=== PATIENT | female | born 1940 | race Two or more races ===

== ENCOUNTER 2025-08-11 20:18 | Inpatient (IN) | payer OTHER ==
[~2025-08-11] VITALS: Ht 157.5 cm; Wt 83.0 kg
--- NOTE | 2025-08-11 20:55 | NUR ---
SE RECIBE PTE ALERTA Y ORIENTADA EN AMBULANCIA REFIRIENDO DOLOR ABDOMINAL. SE MIDEN S/V Y SE UBICA EN HANNA CON BARANDAS ELEVADAS Y NIVEL MAS BAJO DE LA MISMA.
[2025-08-11] MEDS ORDERED: ARBLI10 MG/1 ML PO (20:57)
[2025-08-11] MEDS ORDERED: HYDRODIURIL12.5 MG PO (20:58)
[2025-08-11] MEDS ORDERED: SYMBICORT 16010.2 GM IH (20:58)
[2025-08-11] MEDS ORDERED: SIMVASTATIN5 MG PO (20:58)
[2025-08-11] MEDS ORDERED: AMLODIPINE-OLM1 EAC2 PO (20:58)
[2025-08-11] MEDS ORDERED: FAMOTIDINE/PF 20 MG in 0.9 % SODIUM CHLORIDE 8 ML IV PUSH ONE (22:15)
[2025-08-11] MEDS ORDERED: 0.9 % SODIUM CHLORIDE 1,000 ML IV SCH (22:15)
[2025-08-11] MEDS ORDERED: MORPHINE SULFATE 4 MG/ML CARTRIDGE IV ONE (22:15)
[2025-08-11] MEDS ORDERED: ONDANSETRON HCL 4 MG in 0.9 % SODIUM CHLORIDE 50 ML IV ONE (22:15)
[2025-08-11 23:12] LABS: URINE APPEARANCE Clear; URINE BILIRRUBIN Negative (NEGATIVE); URINE BLOOD Negative; URINE COLOR Yellow; URINE GLUCOSE Negative (NEGATIVE); URINE KETONE Negative (NEGATIVE); URINE LEUKOCYTE Negative; URINE NITRATE Negative; URINE PROTEIN Negative (NEGATIVE); URINE UROBILINOGEN 0.2 E.U./dl
[2025-08-11 23:17] LABS: URINE BACTERIA 20.5 uL (0.0-1933); URINE EPITHELIAL CELLS 1.6 uL (0.0-38.8); URINE WBC 3.3 uL (0.0-23.2)
[2025-08-11] MEDS ORDERED: FAMOTIDINE/PF 20 MG/2 ML VIAL ONE (23:17)
[2025-08-11] MEDS ORDERED: ONDANSETRON HCL 2 MG/ML VIAL ONE (23:17)
[2025-08-11 23:32] LABS: URINE CAST 0.14 uL (0.0-1.40); URINE RBC 0.1 uL (0.0-20.8)
[2025-08-11 23:46] LABS: BASO % 0.6 % (0.1-1.2); EOS # 0.36 (0.04-0.54); EOS % 3.5 % (0.7-7.0); LYMPH # 2.69 (1.18-3.74); LYMPH % 26.2 % (19.3-53.1); MEAN PLATELET VOLUME 10.80 fl (9.4-12.4); MONO # 0.92 (0.24-0.82); MONO % 8.9 % (4.7-12.5); NEUT # 6.23 (1.56-6.13); NEUT % 60.6 % (34.0-71.1); RED CELL DISTRIBUTION WIDTH 13.8 % (11.6-14.4)
--- NOTE | 2025-08-11 23:46 | NUR ---
SE EDUCA SOBRE [place] MEDICO, ESTA REFIERE ENTENDER. SE EXTRAEN MUESTRAS DE LABORATORIO Y SE ADMINISTRAN MEDICAMENTOS YAMILET ORDEN MEDICA. SE HACE ENTREGA DE ENVASE DE U/A.
[2025-08-11 23:48] LABS: ERYTHROCYTE SEDIMENTATION RATE 17 mm/hr (0-30)
[2025-08-12 00:09] LABS: INR 0.98
[2025-08-12 00:13] LABS: ALT/SGPT 18.0 U/L (12-78); AST/SGOT 11.0 U/L (15-37); BILIRUBIN TOTAL 0.44 mg/dL (0.3-1.2); BUN CREA RATIO 26.0 (7.0-25.0); CREATININE SERUM 1.13 mg/dL (0.55-1.02); GFR 45.98; GLOBULINA 3.5 G/DL (2.4-3.5); GLUCOSE FASTING 104.0 mg/dL (65-100); OSMOLALITY SERUM 293.0 MOSM/KG (275-295)
[2025-08-12] MEDS ORDERED: PIPERACILLIN/TAZOBACTAM SODIUM 3.375 GM in DEXTROSE 5 % IN WATER 100 ML IV SCH (01:45)
[2025-08-12] MEDS ORDERED: MORPHINE SULFATE 4 MG/ML VIAL IV PRN (01:45)
[2025-08-12] MEDS ORDERED: PIPERACILLIN/TAZOBACTAM SODIUM 3.375 GM VIAL IV ONE ×3 (02:44→18:04)
[2025-08-12] MEDS ORDERED: ACETAMINOPHEN 500 MG GEL..CAP PO SCH (14:32)
[2025-08-12 17:47] VITALS: BP 130/80
[2025-08-12 22:40] VITALS: BP 166/74; O2SAT 96
[2025-08-13 00:54] VITALS: BP 155/81; O2SAT 97
[2025-08-13] MEDS ORDERED: LEVOTHYROXINE SODIUM 100 MCG TABLET PO SCH (06:00)
[2025-08-13 06:22] LABS: BASO % 0.7 % (0.1-1.2); EOS # 0.35 (0.04-0.54); EOS % 5.0 % (0.7-7.0); LYMPH # 2.49 (1.18-3.74); LYMPH % 35.4 % (19.3-53.1); MEAN PLATELET VOLUME 11.20 fl (9.4-12.4); MONO # 0.69 (0.24-0.82); MONO % 9.8 % (4.7-12.5); NEUT # 3.44 (1.56-6.13); NEUT % 49.0 % (34.0-71.1); RED CELL DISTRIBUTION WIDTH 14.0 % (11.6-14.4)
[2025-08-13 06:23] LABS: INR 1.04
[2025-08-13 07:03] LABS: BUN CREA RATIO 17.0 (7.0-25.0); CREATININE SERUM 1.14 mg/dL (0.55-1.02); GFR 45.52; GLUCOSE FASTING 95.0 mg/dL (65-100); OSMOLALITY SERUM 296.0 MOSM/KG (275-295)
[2025-08-13 08:07] VITALS: BP 128/69; O2SAT 95
[2025-08-13] MEDS ORDERED: FAMOTIDINE/PF 20 MG in 0.9 % SODIUM CHLORIDE 100 ML IV SCH (09:00)
[2025-08-13] MEDS ORDERED: LOSARTAN/HYDROCHLOROTHIAZIDE 1 TAB TABLET PO SCH (09:00)
== END 2025-08-13 13:48 | disposition home or self-care (01) | DRG 395 ==
LOC: ER 20:18 → SEC-K 08-12 16:57 → SURG 08-12 16:57
PROVIDERS: General Practice; ADMIT Internal Medicine; ATTEND Internal Medicine
PROC: BW21ZZZ Computerized Tomography (CT Scan) of Abdomen and Pelvis (ICD-10-PCS; principal; 2025-08-11)
DX: K42.9 Umbilical hernia without obstruction or gangrene (principal); K43.9 Ventral hernia without obstruction or gangrene